=== PATIENT | female | born 1980 | race Two or more races ===

== ENCOUNTER 2016-08-09 23:39 | Emergency (ER) | payer SELFPAY ==
[~2016-08-09] VITALS: Ht 167.6 cm; Wt 73.0 kg
[2016-08-10] MEDS ORDERED: KETOROLAC 60MG/2ML VIAL IM ONE (01:15)
[2016-08-10 02:04] VITALS: BP 116/74
== END 2016-08-10 02:27 | disposition home or self-care (01) ==
LOC: ER 23:40
DX: M62.838 Other muscle spasm (principal); M25.512 Pain in left shoulder; F31.9 Bipolar disorder, unspecified
CPT/HCPCS: 81025; 96372; 99283; J1885

== ENCOUNTER 2018-07-21 07:58 | Emergency (ER) | payer MEDICAID, OTHER ==
[~2018-07-21] VITALS: Ht 167.6 cm; Wt 98.0 kg
[2018-07-21] MEDS ORDERED: GABAPENTIN 300MG CAPSULE PO ONE (08:30)
[2018-07-21 08:51] LABS: BASOPHILS % 0.9 % (0.0-2.0); EOSINOPHILS % 3.5 % (0.0-5.0); HEMATOCRIT. 39.8 % (36.0-48.0); HEMOGLOBIN. 12.7 g/dL (12.0-16.0); LYMPHOCYTES % 21.7 % (20.0-50.0); MEAN CORPUSCULAR HEMOGLOBIN 25.4 pg (28.0-32.0); MEAN PLATELET VOLUME 8.2 fl (7.4-10.4); MONOCYTES % 7.3 % (2.0-8.0); NEUTROPHILS % 66.6 % (40.0-76.0); PLATELET 252 x1000/uL (130-400); RED BLOOD CELL COUNT 4.98 mill/uL (4.2-5.4); RED CELL DISTRIBUTION WIDTH 15.2 % (11.6-14.6)
[2018-07-21 08:56] LABS: CHLORIDE 108 mEq/L (98-107)
[2018-07-21 08:59] LABS: HCG SCREEN NEGATIVE
[2018-07-21] MEDS ORDERED: KETOROLAC 60MG/2ML VIAL IM ONE (10:15)
[2018-07-21] MEDS ORDERED: HYDROCODONE/ACETAMINOPHEN 5/325MG TABLET PO ONE (11:15)
[2018-07-21 13:22] LABS: CANNABINOID URINE SCREEN NEGATIVE (NEGATIVE); OPIATES URINE SCREEN NEGATIVE (NEGATIVE)
[2018-07-21 13:23] LABS: *BARBITURATES SCREEN URINE NEGATIVE (NEGATIVE); *BENZODIAZEPINES SCREEN URINE NEGATIVE (NEGATIVE); *COCAINE SCREEN URINE NEGATIVE (NEGATIVE); METHADONE URINE SCREEN NEGATIVE (NEGATIVE); PHENCYCLIDINE URINE SCREEN NEGATIVE (NEGATIVE)
[2018-07-21 13:27] LABS: *AMPHETAMINES SCREEN URINE PRESUMTIVE POSITIVE (NEGATIVE)
[2018-07-21 15:08] LABS: ETHANOL BLOOD < 10 mg/dL
[2018-07-21] MEDS ORDERED: ACETAMINOPHEN 325MG TABLET PO ONE (20:45)
[2018-07-22] MEDS ORDERED: KETOROLAC 30MG/ML VIAL IM ONE (01:00)
[2018-07-22 13:38] VITALS: BP 120/71
== END 2018-07-22 14:54 | disposition home or self-care (01) ==
LOC: ER 07:58
DX: F23 Brief psychotic disorder (principal); F31.5 Bipolar disorder, current episode depressed, severe, with psychotic features; R07.89 Other chest pain; M25.512 Pain in left shoulder; F15.10 Other stimulant abuse, uncomplicated; F16.10 Hallucinogen abuse, uncomplicated; Z59.0 Homelessness
CPT/HCPCS: 36415; 70450; 71045; 73030; 80053; 80305; 80307; 80320; 80329; 83880; 84484; 84703; 85025; 85379; 96372; 99284; J1885; Z7610; A4565; G0480